=== PATIENT | female | born 1970 | race Two or more races ===

== ENCOUNTER 2023-05-04 09:49 | Emergency (ER) | payer OTHER ==
[2023-05-04 09:58] VITALS: BP 137/77; PULSE 73; RESP 18; TEMP 99.7; BMI 38.2
[2023-05-04 11:12] LABS: BASO % 0.5 % (0-2.0); EOS % 2.1 % (0-4.5); HEMOGLOBIN 11.9 GM/dL (10.7-15.3); LYMPH % 45.8 % (8-40); MCH 28.5 pg (25.7-33.7); MCHC 33.2 g/dl (32.0-36.0); MEAN CELL VOLUME 85.9 fl (80-96); MEAN PLT VOLUME 9.2 fl (7.5-11.1); MONO % 8.1 % (3.8-10.2); NEUT % 43.5 % (42.8-82.8); PLATELET COUNT 264 10^3/uL (134-434); RBC 4.19 M/mm3 (3.60-5.2); RDW 15.8 % (11.6-15.6); WHITE BLOOD COUNT 3.4 K/mm3 (4.0-10.0)
[2023-05-04 11:27] LABS: CALCIUM 8.9 mg/dL (8.5-10.1)
[2023-05-04 11:28] LABS: BLOOD UREA NITROGEN 7.4 mg/dL (7-18)
[2023-05-04 11:31] LABS: CREATININE 0.8 mg/dL (0.55-1.3)
[2023-05-04 11:33] LABS: BILIRUBIN,TOTAL 0.4 mg/dL (0.2-1); TOT PROT 7.9 g/dl (6.4-8.2)
== END 2023-05-04 16:44 | disposition home or self-care (01) ==
LOC: JER 09:49
DX: R00.2 Palpitations (principal); R07.89 Other chest pain; Z20.822 Contact with and (suspected) exposure to COVID-19
CPT/HCPCS: 0241U-QW; 36415; 71046-TC-FY; 80053; 84484; 85025; 93005; 93010; 93971-TC; 99285-25

== ENCOUNTER 2023-05-10 17:07 | Inpatient (IN) | payer OTHER ==
[2023-05-10 17:19] VITALS: BMI 37.9
[2023-05-10] MEDS ORDERED: ACETAMINOPHEN 1000 MG/100 ML BAG IVPB ONE (17:57)
[2023-05-10] MEDS ORDERED: ACETAMINOPHEN INJECTION 100 ML IVPB ONE (18:04)
[2023-05-10 18:29] LABS: BASO % 0.8 % (0-2.0); EOS % 0.4 % (0-4.5); HEMATOCRIT 34.6 % (32.4-45.2); HEMOGLOBIN 11.8 GM/dL (10.7-15.3); LYMPH % 24.4 % (8-40); MCH 28.9 pg (25.7-33.7); MCHC 33.9 g/dl (32.0-36.0); MEAN CELL VOLUME 85.1 fl (80-96); MEAN PLT VOLUME 9.5 fl (7.5-11.1); MONO % 6.8 % (3.8-10.2); NEUT % 67.6 % (42.8-82.8); PLATELET COUNT 243 10^3/uL (134-434); RBC 4.07 M/mm3 (3.60-5.2); RDW 15.3 % (11.6-15.6); WHITE BLOOD COUNT 8.6 K/mm3 (4.0-10.0)
[2023-05-10 18:40] LABS: INR 1.18 (0.83-1.09); PROTHROMBIN TIME (PATIENT) 13.7 SEC (9.7-13.0)
[2023-05-10 18:43] LABS: ACTIVATED PTT 31.9 SECONDS (25.2-36.5)
[2023-05-10 18:44] LABS: POTASSIUM 3.7 mmol/L (3.5-5.1)
[2023-05-10 18:46] LABS: CALCIUM 8.8 mg/dL (8.5-10.1)
[2023-05-10 18:47] LABS: ALBUMIN 3.6 g/dl (3.4-5.0); BLOOD UREA NITROGEN 8.3 mg/dL (7-18)
[2023-05-10 18:49] LABS: CREATININE 0.8 mg/dL (0.55-1.3)
[2023-05-10 18:51] LABS: BILIRUBIN,TOTAL 0.5 mg/dL (0.2-1); TOT PROT 7.6 g/dl (6.4-8.2)
[2023-05-10 19:53] LABS: EPI CELLS 4 /uL (0-25.1); HYALINE CASTS 0 /uL (0-3.1); PH,URINE 6.5 (5.0-8.0); URINE APPEARANCE CLEAR; URINE BACTERIA 33 /uL (0-1359); URINE BILIRUBIN NEGATIVE (NEGATIVE); URINE COLOR YELLOW; URINE GLUCOSE (UA) NEGATIVE (NEGATIVE); URINE KETONE 1+ (NEGATIVE); URINE LEUK ESTERASE NEGATIVE (NEGATIVE); URINE NITRITE NEGATIVE (NEGATIVE); URINE PROTEIN NEGATIVE (NEGATIVE); URINE RBC 84 /uL (0-23.9); URINE WBC 4 /uL (0-25.8)
[2023-05-10] MEDS ORDERED: CIPROFLOXACIN 400 MG/D5W 400 MG/200 ML IVPB IVPB ONE (20:54)
[2023-05-10] MEDS ORDERED: morphine CARPU-JECT 2 MG/1 ML DISP.SYRIN IVPUSH ONE (20:59)
[2023-05-11] MEDS ORDERED: ONDANSETRON 4 MG/2 ML VIAL IVPUSH ONE (01:22)
[2023-05-11] MEDS ORDERED: MONTELUKAST NA 5 MG TAB.CHEW PO PRN (01:23)
[2023-05-11] MEDS ORDERED: KETOROLAC TROMETHAMINE 15 MG/ML VIAL IVPUSH PRN (01:23)
[2023-05-11] MEDS: ALBUTEROL SO4 HFA INHALER IH SCH ×2 (01:45→06:20)
[2023-05-11 07:41] LABS: BASO % 0.5 % (0-2.0); EOS % 0.7 % (0-4.5); HEMATOCRIT 32.3 % (32.4-45.2); LYMPH % 24.4 % (8-40); MCH 29.3 pg (25.7-33.7); MCHC 34.2 g/dl (32.0-36.0); MEAN CELL VOLUME 85.6 fl (80-96); MEAN PLT VOLUME 9.1 fl (7.5-11.1); NEUT % 66.4 % (42.8-82.8); PLATELET COUNT 226 10^3/uL (134-434); RBC 3.77 M/mm3 (3.60-5.2); RDW 15.4 % (11.6-15.6)
[2023-05-11 08:00] LABS: POTASSIUM 3.6 mmol/L (3.5-5.1)
[2023-05-11 08:06] LABS: CALCIUM 8.4 mg/dL (8.5-10.1)
[2023-05-11 08:07] LABS: ALBUMIN 3.4 g/dl (3.4-5.0); BLOOD UREA NITROGEN 6.4 mg/dL (7-18); MAGNESIUM 2.1 mg/dL (1.8-2.4)
[2023-05-11 08:10] LABS: CREATININE 0.7 mg/dL (0.55-1.3); PHOSPHOROUS 3.6 mg/dL (2.5-4.9)
[2023-05-11 08:11] LABS: BILIRUBIN,TOTAL 0.7 mg/dL (0.2-1); TOT PROT 6.9 g/dl (6.4-8.2)
[2023-05-11] MEDS: SODIUM CHLORIDE 1,000 ML IV SCH (08:13)
[2023-05-11] MEDS ORDERED: CEFTRIAXONE 1 GM/50 ML BAG ONE (08:40)
[2023-05-11] MEDS ORDERED: ACETAMINOPHEN INJECTION 100 ML IVPB ONE ×2 (08:44→16:06)
[2023-05-11] MEDS: ACETAMINOPHEN 1000 MG/100 ML BAG IVPB PRN ×2 (08:48→16:15)
[2023-05-11] MEDS: CEFTRIAXONE 1 GM in DEXTROSE 5%-WATER - 50 ML IVPB SCH (08:50)
[2023-05-11] MEDS ORDERED: ALBUTEROL SO4 HFA INHALER IH PRN (09:01)
[2023-05-11] MEDS: ENOXAPARIN NA (PORCINE) 40 MG/0.4 ML DISP.SYRIN SQ SCH (10:22)
[2023-05-11] MEDS ORDERED: METOPROLOL TARTRATE 25 MG TABLET (FP) ONE (10:23)
[2023-05-11] MEDS: METOPROLOL TARTRATE 25 MG TABLET (FP) PO SCH (10:28)
[2023-05-12] MEDS: SODIUM CHLORIDE 1,000 ML IV SCH (02:00)
[2023-05-12] MEDS ORDERED: ACETAMINOPHEN 1000 MG/100 ML BAG IVPB PRN (08:10)
[2023-05-12] MEDS: CEFTRIAXONE 1 GM in DEXTROSE 5%-WATER - 50 ML IVPB SCH (09:35)
[2023-05-12] MEDS: ENOXAPARIN NA (PORCINE) 40 MG/0.4 ML DISP.SYRIN SQ SCH ×2 (09:36→09:49)
[2023-05-12] MEDS: METOPROLOL TARTRATE 25 MG TABLET (FP) PO SCH (09:36)
[2023-05-12] MEDS: FLUTICASONE/SALMETEROL (WIXELA) 100 MCG/50 MCG DISKUS IH SCH ×2 (09:43→22:05)
[2023-05-12 11:51] LABS: HEMATOCRIT 33.7 % (32.4-45.2); MCH 28.6 pg (25.7-33.7); MCHC 32.6 g/dl (32.0-36.0); MEAN CELL VOLUME 87.7 fl (80-96); MEAN PLT VOLUME 10.1 fl (7.5-11.1); PLATELET COUNT 243 10^3/uL (134-434); RBC 3.84 M/mm3 (3.60-5.2); RDW 15.1 % (11.6-15.6); WHITE BLOOD COUNT 5.4 K/mm3 (4.0-10.0)
[2023-05-12 12:03] LABS: POTASSIUM 3.8 mmol/L (3.5-5.1)
[2023-05-12 12:04] LABS: CALCIUM 8.4 mg/dL (8.5-10.1)
[2023-05-12 12:05] LABS: ALBUMIN 3.2 g/dl (3.4-5.0); BLOOD UREA NITROGEN 5.6 mg/dL (7-18)
[2023-05-12 12:08] LABS: CREATININE 0.7 mg/dL (0.55-1.3); PHOSPHOROUS 2.6 mg/dL (2.5-4.9)
[2023-05-12 12:10] LABS: BILIRUBIN,TOTAL 0.5 mg/dL (0.2-1); TOT PROT 7.3 g/dl (6.4-8.2)
[2023-05-13] MEDS: SODIUM CHLORIDE 1,000 ML IV SCH (07:50)
[2023-05-13] MEDS: ENOXAPARIN NA (PORCINE) 40 MG/0.4 ML DISP.SYRIN SQ SCH ×2 (09:48→09:56)
[2023-05-13] MEDS: CEFTRIAXONE 1 GM in DEXTROSE 5%-WATER - 50 ML IVPB SCH (09:49)
[2023-05-13] MEDS: METOPROLOL TARTRATE 25 MG TABLET (FP) PO SCH ×2 (09:49→09:54)
[2023-05-13 10:19] LABS: BASO % 0.5 % (0-2.0); EOS % 2.4 % (0-4.5); HEMATOCRIT 34.2 % (32.4-45.2); HEMOGLOBIN 11.6 GM/dL (10.7-15.3); LYMPH % 30.5 % (8-40); MCH 29.1 pg (25.7-33.7); MCHC 33.9 g/dl (32.0-36.0); MEAN CELL VOLUME 85.9 fl (80-96); MONO % 5.5 % (3.8-10.2); NEUT % 61.1 % (42.8-82.8); PLATELET COUNT 284 10^3/uL (134-434); RBC 3.98 M/mm3 (3.60-5.2); RDW 15.3 % (11.6-15.6); WHITE BLOOD COUNT 3.3 K/mm3 (4.0-10.0)
[2023-05-13 10:38] LABS: POTASSIUM 3.6 mmol/L (3.5-5.1)
[2023-05-13 10:39] LABS: CALCIUM 8.9 mg/dL (8.5-10.1)
[2023-05-13 10:40] LABS: BLOOD UREA NITROGEN 4.7 mg/dL (7-18)
[2023-05-13 10:43] LABS: CREATININE 0.9 mg/dL (0.55-1.3); PHOSPHOROUS 2.2 mg/dL (2.5-4.9)
[2023-05-13] MEDS: FLUTICASONE/SALMETEROL (WIXELA) 100 MCG/50 MCG DISKUS IH SCH (11:15)
[2023-05-13 16:23] VITALS: BP 119/74; PULSE 69; RESP 18; TEMP 98.8
== END 2023-05-13 18:33 | disposition home or self-care (01) | DRG 244 ==
LOC: JER 17:07 → JERBED 22:19 → J5S 05-11 19:06
PROVIDERS: ADMIT Internal Medicine; ATTEND Internal Medicine
DX: K57.32 Diverticulitis of large intestine without perforation or abscess without bleeding (principal); I10 Essential (primary) hypertension; E66.9 Obesity, unspecified; J45.909 Unspecified asthma, uncomplicated; R19.7 Diarrhea, unspecified; R31.9 Hematuria, unspecified; Z68.37 Body mass index [BMI] 37.0-37.9, adult; R10.32 Left lower quadrant pain
CPT/HCPCS: 36415; 74177-TC; 80048; 80053; 81003; 83690; 83735; 84100; 84703; 85025; 85027; 85610; 85730; 86140; 86850; 86900; 86901; 87086; 93005; 93010; 99285-25

== ENCOUNTER 2023-07-28 04:25 | Day surgery (SDC) | payer OTHER ==
[2023-07-25 14:49] VITALS: BMI 37.9
[2023-07-28 07:31] VITALS: RESP 18
[2023-07-28 08:47] VITALS: TEMP 97.1
[2023-07-28 09:17] VITALS: PULSE 62
[2023-07-28 09:19] VITALS: BP 120/62
== END 2023-07-28 09:39 | disposition home or self-care (01) ==
LOC: JASU-ENDO 04:25
PROVIDERS: ATTEND Internal Medicine Gastroenterology
PROC: 0DBN8ZX Excision of Sigmoid Colon, Via Natural or Artificial Opening Endoscopic, Diagnostic (ICD-10-PCS; 2023-07-28)
PROC: 0DBP8ZX Excision of Rectum, Via Natural or Artificial Opening Endoscopic, Diagnostic (ICD-10-PCS; principal; 2023-07-28 08:00)
DX: Z12.11 Encounter for screening for malignant neoplasm of colon (principal); K63.5 Polyp of colon; K62.1 Rectal polyp; K57.30 Diverticulosis of large intestine without perforation or abscess without bleeding; K64.8 Other hemorrhoids; I10 Essential (primary) hypertension
CPT/HCPCS: 88305-TC

== ENCOUNTER 2024-01-02 09:50 | Inpatient (IN) | payer OTHER ==
[2024-01-02] MEDS ORDERED: ACETAMINOPHEN INJECTION 100 ML IVPB ONE (10:29)
[2024-01-02] MEDS ORDERED: ONDANSETRON 4 MG/2 ML VIAL ONE (10:29)
[2024-01-02] MEDS: ACETAMINOPHEN 1000 MG/100 ML BAG IVPB ONE (10:45)
[2024-01-02] MEDS: SODIUM CHLORIDE 0.9% 500 ML INFUS.BAG IV ONE (10:45)
[2024-01-02] MEDS: ONDANSETRON 4 MG/2 ML VIAL IVPB ONE (10:46)
[2024-01-02 10:50] LABS: HEMATOCRIT 38.4 % (32.4-45.2); HEMOGLOBIN 12.8 GM/dL (10.7-15.3); MCH 29.3 pg (25.7-33.7); MCHC 33.4 g/dl (32.0-36.0); MEAN CELL VOLUME 87.8 fl (80-96); MEAN PLT VOLUME 9.2 fl (7.5-11.1); PLATELET COUNT 267 10^3/uL (134-434); RBC 4.37 M/mm3 (3.60-5.2); WHITE BLOOD COUNT 8.5 K/mm3 (4.0-10.0)
[2024-01-02 11:17] LABS: CALCIUM 9.2 mg/dL (8.5-10.1)
[2024-01-02 11:18] LABS: ALBUMIN 3.6 g/dl (3.4-5.0); BLOOD UREA NITROGEN 14.3 mg/dL (7-18)
[2024-01-02 11:21] LABS: CREATININE 0.9 mg/dL (0.55-1.3)
[2024-01-02 11:22] LABS: TOT PROT 7.7 g/dl (6.4-8.2)
[2024-01-02 11:28] LABS: BILIRUBIN,TOTAL 0.7 mg/dL (0.2-1)
[2024-01-02 11:34] LABS: ANISOCYTOSIS 0; HELMET CELLS 0; HOWELL-JOLLY BODIES 0; MACROCYTOSIS 0; OVALOCYTE 0; ROULEAU 0; SICKELED CELLS 0; TARGET CELLS 0; TEAR DROP CELLS 0; TOXIC GRANULATION 0
[2024-01-02] MEDS ORDERED: morphine SULFATE 4 MG/ML VIAL ONE (13:10)
[2024-01-02] MEDS: morphine CARPU-JECT 4 MG/1 ML DISP.SYRIN IVPUSH ONE (13:11)
[2024-01-02] MEDS: DEXTROSE 5%-NORMAL SALINE 1,000 ML IV SCH (14:50)
[2024-01-02] MEDS ORDERED: ONDANSETRON 4 MG/2 ML VIAL IVPUSH PRN (15:53)
[2024-01-02] MEDS ORDERED: ACETAMINOPHEN 1000 MG/100 ML BAG IVPB PRN (15:54)
[2024-01-02] MEDS ORDERED: PIPERACILLIN/TAZOB 3.375 GM 3.375 GM in DEXTROSE 5%-WATER - 50 ML IVPB SCH (16:00)
[2024-01-02] MEDS: DEXTROSE 5%-0.45% SALINE 1,000 ML IV SCH (16:14)
[2024-01-02] MEDS ORDERED: PIPERACILLIN/TAZOB 3.375 GM 3.375 GM/50 ML BAG IVPB ONE (17:28)
[2024-01-02] MEDS: PIPERACILLIN/TAZOB 3.375 GM 3.375 GM in DEXTROSE 5%-WATER - 50 ML IVPB SCH (17:33)
[2024-01-02 19:49] LABS: EPI CELLS 1 /uL (0-25.1); HYALINE CASTS 1 /uL (0-3.1); PH,URINE 5.5 (5.0-8.0); URINE APPEARANCE CLEAR; URINE BACTERIA 5 /uL (0-1359); URINE BILIRUBIN NEGATIVE (NEGATIVE); URINE COLOR YELLOW; URINE GLUCOSE (UA) NEGATIVE (NEGATIVE); URINE KETONE NEGATIVE (NEGATIVE); URINE LEUK ESTERASE NEGATIVE (NEGATIVE); URINE NITRITE NEGATIVE (NEGATIVE); URINE PROTEIN TRACE (NEGATIVE); URINE RBC 49 /uL (0-23.9); URINE UROBILINOGEN 0.2 mg/dL (0.2-1.0); URINE WBC 4 /uL (0-25.8)
[2024-01-02 20:17] VITALS: BMI 35.6
[2024-01-02] MEDS ORDERED: BUDESONIDE/FORMOTEROL FUMARATE 80-4.5 MCG (10.3 GM INHALER) IH SCH (22:00)
[2024-01-02] MEDS: MONTELUKAST NA 10 MG TABLET PO SCH (22:26)
[2024-01-03 07:59] LABS: BASO % 0.6 % (0-2.0); EOS % 0.1 % (0-4.5); HEMATOCRIT 34.3 % (32.4-45.2); HEMOGLOBIN 11.2 GM/dL (10.7-15.3); MCH 29.1 pg (25.7-33.7); MCHC 32.6 g/dl (32.0-36.0); MEAN CELL VOLUME 89.2 fl (80-96); MEAN PLT VOLUME 9.1 fl (7.5-11.1); MONO % 7.7 % (3.8-10.2); NEUT % 69.6 % (42.8-82.8); PLATELET COUNT 230 10^3/uL (134-434); RBC 3.85 M/mm3 (3.60-5.2); RDW 14.9 % (11.6-15.6); WHITE BLOOD COUNT 4.2 K/mm3 (4.0-10.0)
[2024-01-03 08:17] LABS: POTASSIUM 3.2 mmol/L (3.5-5.1)
[2024-01-03 08:28] LABS: ALBUMIN 3.2 g/dl (3.4-5.0); BLOOD UREA NITROGEN 7.4 mg/dL (7-18); CALCIUM 8.2 mg/dL (8.5-10.1)
[2024-01-03 08:31] LABS: BILIRUBIN,TOTAL 0.8 mg/dL (0.2-1); CREATININE 1.1 mg/dL (0.55-1.3)
[2024-01-03 08:32] LABS: TOT PROT 6.8 g/dl (6.4-8.2)
[2024-01-03] MEDS: METOPROLOL TARTRATE 25 MG TABLET (FP) PO SCH (09:42)
[2024-01-03] MEDS: PIPERACILLIN/TAZOB 3.375 GM 3.375 GM in DEXTROSE 5%-WATER - 50 ML IVPB SCH (17:39)
[2024-01-03] MEDS: KCL 10 MEQ IVPB 10 MEQ/100 ML INFUS.BAG IVPB SCH ×2 (17:40→22:14)
[2024-01-03] MEDS: POTASSIUM CHLORIDE ORAL LIQUID 20 MEQ/15 ML PO ONE ×2 (17:51→21:20)
[2024-01-04 08:41] LABS: BASO % 0.3 % (0-2.0); EOS % 4.2 % (0-4.5); HEMOGLOBIN 11.2 GM/dL (10.7-15.3); LYMPH % 37.7 % (8-40); MCH 29.7 pg (25.7-33.7); MCHC 34.1 g/dl (32.0-36.0); MEAN CELL VOLUME 87.3 fl (80-96); MEAN PLT VOLUME 9.1 fl (7.5-11.1); MONO % 11.6 % (3.8-10.2); NEUT % 46.2 % (42.8-82.8); PLATELET COUNT 220 10^3/uL (134-434); RBC 3.78 M/mm3 (3.60-5.2); RDW 14.6 % (11.6-15.6); WHITE BLOOD COUNT 4.2 K/mm3 (4.0-10.0)
[2024-01-04 08:55] LABS: POTASSIUM 3.6 mmol/L (3.5-5.1)
[2024-01-04 09:17] LABS: ALBUMIN 3.2 g/dl (3.4-5.0); CALCIUM 8.5 mg/dL (8.5-10.1)
[2024-01-04 09:19] LABS: BLOOD UREA NITROGEN 3.4 mg/dL (7-18)
[2024-01-04 09:21] LABS: CREATININE 0.7 mg/dL (0.55-1.3)
[2024-01-04 09:23] LABS: BILIRUBIN,TOTAL 0.3 mg/dL (0.2-1); TOT PROT 6.6 g/dl (6.4-8.2)
[2024-01-04] MEDS: PSYLLIUM 5.85 GM PACKET PO SCH (09:52)
[2024-01-04] MEDS: LACTOBACILLUS ACIDOPHILUS 1 TABLET PO SCH (09:53)
[2024-01-05 07:54] LABS: BASO % 0.2 % (0-2.0); EOS % 7.1 % (0-4.5); HEMATOCRIT 32.6 % (32.4-45.2); HEMOGLOBIN 11.1 GM/dL (10.7-15.3); LYMPH % 48.7 % (8-40); MCH 29.5 pg (25.7-33.7); MCHC 33.9 g/dl (32.0-36.0); MEAN PLT VOLUME 8.9 fl (7.5-11.1); MONO % 11.2 % (3.8-10.2); NEUT % 32.8 % (42.8-82.8); PLATELET COUNT 235 10^3/uL (134-434); RBC 3.75 M/mm3 (3.60-5.2); RDW 14.7 % (11.6-15.6); WHITE BLOOD COUNT 3.9 K/mm3 (4.0-10.0)
[2024-01-05 08:11] LABS: POTASSIUM 3.8 mmol/L (3.5-5.1)
[2024-01-05 08:16] LABS: BLOOD UREA NITROGEN 7.5 mg/dL (7-18); CALCIUM 8.3 mg/dL (8.5-10.1)
[2024-01-05 08:20] LABS: BILIRUBIN,TOTAL 0.3 mg/dL (0.2-1); CREATININE 0.9 mg/dL (0.55-1.3); TOT PROT 6.7 g/dl (6.4-8.2)
[2024-01-05] MEDS: [UNRECOGNIZED DRUG - OTHER] IH SCH (21:53)
[2024-01-05] MEDS: METOPROLOL TARTRATE 25 MG TABLET (FP) PO SCH (21:53)
[2024-01-05] MEDS: ADVAIR IH SCH (21:53)
[2024-01-06 12:34] VITALS: BP 123/65; PULSE 64; RESP 17; TEMP 98.1
== END 2024-01-06 18:09 | disposition home or self-care (01) | DRG 244 ==
LOC: JER 09:50 → JERBED 15:07 → J7W 19:48
PROVIDERS: ADMIT Internal Medicine; ATTEND Internal Medicine
DX: K57.32 Diverticulitis of large intestine without perforation or abscess without bleeding (principal); I10 Essential (primary) hypertension; R10.32 Left lower quadrant pain; K52.9 Noninfective gastroenteritis and colitis, unspecified; J45.909 Unspecified asthma, uncomplicated; K63.5 Polyp of colon
CPT/HCPCS: 0241U-QW; 36415; 74177-TC; 80053; 81003; 83605; 83690; 85025; 86140; 87045; 87046; 87324; 87449; 93005; 93010; 99285-25; J0131; Q9967

== ENCOUNTER 2024-01-17 03:53 | Inpatient (IN) | payer OTHER ==
[2024-01-17] MEDS ORDERED: ceFAZolin SODIUM 1 GM VIAL ONE (06:19)
[2024-01-17] MEDS ORDERED: DEXAMETHASONE SOD PHOSPHATE 4 MG/1 ML VIAL ONE (07:27)
[2024-01-17] MEDS ORDERED: LIDOCAINE HCL/PF 2% SDV 5ML VIAL ONE (07:27)
[2024-01-17] MEDS ORDERED: ONDANSETRON 4 MG/2 ML VIAL ONE (07:27)
[2024-01-17] MEDS ORDERED: ROCURONIUM BROMIDE 50 MG/5 ML SYRINGE ONE (07:28)
[2024-01-17] MEDS ORDERED: FENTANYL CITRATE/PF 50 MCG/ML VIAL ONE ×2 (07:28→10:58)
[2024-01-17] MEDS ORDERED: PROPOFOL 100 ML ONE (07:28)
[2024-01-17] MEDS ORDERED: SUCCINYLCHOLINE CHLORIDE 200 MG/10 ML SYRINGE ONE (07:30)
[2024-01-17] MEDS ORDERED: HEPARIN NA (PORCINE) 5,000 UNITS/ML 1ML VIAL ONE (07:34)
[2024-01-17] MEDS ORDERED: BUPIVACAINE HCL/PF 0.25% (2.5MG/ML) 10 ML VIAL ONE (07:34)
[2024-01-17] MEDS ORDERED: INDOCYANINE GREEN 25 MG/10 ML VIAL IVPUSH ONE (07:34)
[2024-01-17] MEDS ORDERED: cefOXitin SODIUM 2 GM VIAL (RESTRICTED TO ID) IVPB ONE ×2 (07:34→13:18)
[2024-01-17] MEDS ORDERED: MIDAZOLAM HCL 2 MG/2 ML SINGLE DOSE VIAL ONE (07:36)
[2024-01-17] MEDS: cefOXitin SODIUM 2 GM VIAL (RESTRICTED TO ID) IVPB ONE ×2 (08:36→13:26)
[2024-01-17] MEDS: BUPIVACAINE HCL/PF 0.25% (2.5MG/ML) 10 ML VIAL IJ ONE ×2 (09:00→09:10)
[2024-01-17 11:28] LABS: ARTERIAL BLD GAS O2 SATURATION 99.7 % (95-98); ARTERIAL BLOOD GAS BASE EXCESS -7.3 mmol/L (-2-2); ARTERIAL BLOOD GAS PO2 345.3 mmHg (80-100); ARTERIAL BLOOD GAS pH 7.254 (7.350-7.450)
[2024-01-17 11:29] LABS: ALLENS TEST POSITIVE
[2024-01-17 11:32] LABS: BASO % 0.3 % (0-2.0); EOS % 0.4 % (0-4.5); HEMATOCRIT 38.1 % (32.4-45.2); HEMOGLOBIN 12.4 GM/dL (10.7-15.3); LYMPH % 13.1 % (8-40); MCHC 32.6 g/dl (32.0-36.0); MEAN CELL VOLUME 88.9 fl (80-96); MEAN PLT VOLUME 9.4 fl (7.5-11.1); MONO % 1.6 % (3.8-10.2); NEUT % 84.6 % (42.8-82.8); PLATELET COUNT 194 10^3/uL (134-434); RBC 4.28 M/mm3 (3.60-5.2); RDW 14.2 % (11.6-15.6); WHITE BLOOD COUNT 12.6 K/mm3 (4.0-10.0)
[2024-01-17] MEDS ORDERED: HYDROmorphone HCl 2 MG/ML VIAL ONE (11:43)
[2024-01-17 11:51] LABS: CHLORIDE 113 mmol/L (98-107); POTASSIUM 5.8 mmol/L (3.5-5.1); SODIUM 141 mmol/L (136-145)
[2024-01-17 11:55] LABS: ANION GAP 4 mmol/L (4-13); BLOOD UREA NITROGEN 9.9 mg/dL (7-18); CO2 24 mmol/L (21-32); GLUCOSE,RANDOM 250 mg/dL (74-106)
[2024-01-17 11:58] LABS: CREATININE 0.9 mg/dL (0.55-1.3); SGOT/AST 15 U/L (15-37); SGPT/ALT 21 U/L (13-61)
[2024-01-17 11:59] LABS: TOT PROT 4.8 g/dl (6.4-8.2)
[2024-01-17 12:00] LABS: BILIRUBIN,TOTAL 0.3 mg/dL (0.2-1)
[2024-01-17 12:01] LABS: ALK PHOS 44 U/L (45-117)
[2024-01-17 12:03] LABS: ALBUMIN 2.3 g/dl (3.4-5.0); CALCIUM 6.7 mg/dL (8.5-10.1)
[2024-01-17 12:06] LABS: ARTERIAL BLD GAS O2 SATURATION 99.8 % (95-98); ARTERIAL BLOOD GAS BASE EXCESS -2.9 mmol/L (-2-2); ARTERIAL BLOOD GAS PO2 354.2 mmHg (80-100); ARTERIAL BLOOD GAS pH 7.384 (7.350-7.450)
[2024-01-17 12:12] LABS: INR 1.09 (0.83-1.09); PROTHROMBIN TIME (PATIENT) 12.3 SEC (9.7-13.0)
[2024-01-17 12:15] LABS: ACTIVATED PTT 21.4 SECONDS (25.2-36.5)
[2024-01-17] MEDS ORDERED: CALCIUM CHLORIDE 1 GM/10 ML *DISP.SYRIN ONE (12:29)
[2024-01-17] MEDS ORDERED: SUGAMMADEX SODIUM 200 MG/2 ML VIAL ONE ×2 (13:52→14:39)
[2024-01-17] MEDS ORDERED: PROPOFOL 20 ML ONE (14:28)
[2024-01-17] MEDS: LACTATED RINGERS SOLUTION 1,000 ML IV SCH (14:59)
[2024-01-17] MEDS ORDERED: ONDANSETRON 4 MG/2 ML VIAL IVPUSH PRN (15:10)
[2024-01-17 15:51] LABS: ARTERIAL BLD GAS O2 SATURATION 99.3 % (95-98); ARTERIAL BLOOD GAS BASE EXCESS -3.4 mmol/L (-2-2); ARTERIAL BLOOD GAS PO2 216.6 mmHg (80-100); ARTERIAL BLOOD GAS pH 7.306 (7.350-7.450)
[2024-01-17 15:54] LABS: HEMATOCRIT 39.7 % (32.4-45.2); HEMOGLOBIN 13.3 GM/dL (10.7-15.3); MCH 29.2 pg (25.7-33.7); MCHC 33.5 g/dl (32.0-36.0); MEAN CELL VOLUME 87.1 fl (80-96); MEAN PLT VOLUME 9.2 fl (7.5-11.1); PLATELET COUNT 241 10^3/uL (134-434); RBC 4.56 M/mm3 (3.60-5.2); RDW 14.3 % (11.6-15.6); WHITE BLOOD COUNT 13.2 K/mm3 (4.0-10.0)
[2024-01-17] MEDS: ACETAMINOPHEN 1000 MG/100 ML BAG IVPB STA (15:59)
[2024-01-17] MEDS ORDERED: ACETAMINOPHEN INJECTION 100 ML IVPB ONE (16:00)
[2024-01-17] MEDS: FAMOTIDINE 20 MG/50 ML IVPB 20 MG/50 ML MG IVPB SCH (16:00)
[2024-01-17] MEDS ORDERED: FAMOTIDINE 20 MG/50 ML IVPB 20 MG/50 ML MG IVPB ONE (16:01)
[2024-01-17 16:09] LABS: INR 1.03 (0.83-1.09); PROTHROMBIN TIME (PATIENT) 11.6 SEC (9.7-13.0)
[2024-01-17 16:12] LABS: ACTIVATED PTT 25.7 SECONDS (25.2-36.5)
[2024-01-17] MEDS: ELECTROLYTE-148 SOLN 1,000 ML IV SCH (16:29)
[2024-01-17] MEDS: HYDROmorphone *PCA* 10MG/50ML DISP.SYRIN PCA SCH ×2 (16:30→17:50)
[2024-01-17 16:45] LABS: POTASSIUM 3.8 mmol/L (3.5-5.1)
[2024-01-17 16:47] LABS: BLOOD UREA NITROGEN 11.3 mg/dL (7-18)
[2024-01-17 16:48] LABS: MAGNESIUM 1.7 mg/dL (1.8-2.4)
[2024-01-17 16:51] LABS: CREATININE 1.3 mg/dL (0.55-1.3); PHOSPHOROUS 4.4 mg/dL (2.5-4.9)
[2024-01-17 16:52] LABS: BILIRUBIN,TOTAL 1.1 mg/dL (0.2-1); TOT PROT 6.4 g/dl (6.4-8.2)
[2024-01-17 16:54] LABS: ALBUMIN 3.4 g/dl (3.4-5.0); CALCIUM 9.8 mg/dL (8.5-10.1)
[2024-01-17] MEDS: CALCIUM GLUCONATE 10% - 1,000 MG/10 ML VIAL IVPB ONE (17:29)
[2024-01-17] MEDS: CEFOXITIN SODIUM 2 GM in DEXTROSE 5%-WATER - 100 ML IVPB ONE (17:51)
[2024-01-17] MEDS: LIDOCAINE 5% TOPICAL PATCH TP SCH (18:02)
[2024-01-17] MEDS: CEFOXITIN SODIUM 2 GM in DEXTROSE 5%-WATER 100 ML IVPB SCH (19:04)
[2024-01-17] MEDS: LACTATED RINGERS SOLUTION 1,000 ML/1,000 ML INFUS.BAG IV SCH (19:57)
[2024-01-17] MEDS: MAGNESIUM SULF 50% (8.12 MEQ/2 ML-1 GM VIAL) IVPB ONE (20:24)
[2024-01-17 21:19] LABS: HEMATOCRIT 39.9 % (32.4-45.2); HEMOGLOBIN 13.7 GM/dL (10.7-15.3); MCH 29.4 pg (25.7-33.7); MCHC 34.3 g/dl (32.0-36.0); MEAN CELL VOLUME 85.7 fl (80-96); MEAN PLT VOLUME 8.8 fl (7.5-11.1); PLATELET COUNT 232 10^3/uL (134-434); RBC 4.65 M/mm3 (3.60-5.2); RDW 14.4 % (11.6-15.6); WHITE BLOOD COUNT 18.1 K/mm3 (4.0-10.0)
[2024-01-17] MEDS: MUPIROCIN 2% TOPICAL OINTMENT FOR DECOLONIZATION NS SCH (21:26)
[2024-01-17] MEDS: TRANEXAMIC ACID 1000 MG/10 ML VIAL IVPUSH SCH (21:26)
[2024-01-17] MEDS: LIDOCAINE PATCH REMOVAL MC SCH (21:27)
[2024-01-17] MEDS: CHLORHEXIDINE GLUCONATE 4% CLEANSER FOR DECOLONIZATION TP SCH (21:27)
[2024-01-17 21:28] LABS: INR 1.04 (0.83-1.09); PROTHROMBIN TIME (PATIENT) 11.7 SEC (9.7-13.0)
[2024-01-17] MEDS: ACETAMINOPHEN 1000 MG/100 ML BAG IVPB PRN (21:28)
[2024-01-17 21:31] LABS: ACTIVATED PTT 28.4 SECONDS (25.2-36.5)
[2024-01-17] MEDS ORDERED: MUPIROCIN 2% TOPICAL OINTMENT FOR DECOLONIZATION NS SCH (22:00)
[2024-01-17] MEDS ORDERED: CHLORHEXIDINE GLUCONATE 4% CLEANSER FOR DECOLONIZATION TP SCH (22:00)
[2024-01-17 22:11] LABS: PLATELET ESTIMATE ADEQUATE
[2024-01-17] MEDS ORDERED: METOPROLOL TARTRATE 5 MG/5 ML VIAL ONE (23:23)
[2024-01-17] MEDS: METOPROLOL TARTRATE 5 MG/5 ML VIAL IVPUSH ONE (23:40)
[2024-01-18] MEDS: FENTANYL CITRATE/PF 50 MCG/ML VIAL IVPUSH PRN (01:45)
[2024-01-18 03:27] LABS: HEMATOCRIT 38.5 % (32.4-45.2); HEMOGLOBIN 13.2 GM/dL (10.7-15.3); MCH 29.2 pg (25.7-33.7); MCHC 34.3 g/dl (32.0-36.0); MEAN CELL VOLUME 85.2 fl (80-96); PLATELET COUNT 213 10^3/uL (134-434); RBC 4.52 M/mm3 (3.60-5.2); RDW 14.7 % (11.6-15.6); WHITE BLOOD COUNT 18.8 K/mm3 (4.0-10.0)
[2024-01-18 03:52] LABS: INR 1.13 (0.83-1.09); PROTHROMBIN TIME (PATIENT) 12.7 SEC (9.7-13.0)
[2024-01-18 03:54] LABS: ACTIVATED PTT 25.9 SECONDS (25.2-36.5); ANISOCYTOSIS 0; MACROCYTOSIS 0; OVALOCYTE 1+
[2024-01-18 07:22] LABS: BLOOD UREA NITROGEN 13.7 mg/dL (7-18); CALCIUM 8.6 mg/dL (8.5-10.1)
[2024-01-18 07:25] LABS: PHOSPHOROUS 3.7 mg/dL (2.5-4.9)
[2024-01-18 07:26] LABS: CREATININE 1.2 mg/dL (0.55-1.3)
[2024-01-18 07:27] LABS: BILIRUBIN,TOTAL 0.9 mg/dL (0.2-1)
[2024-01-18 07:30] LABS: TOT PROT 6.1 g/dl (6.4-8.2)
[2024-01-18] MEDS: HYDROmorphone *PCA* 10MG/50ML DISP.SYRIN PCA SCH (09:15)
[2024-01-18 10:36] LABS: BASO % 0.2 % (0-2.0); HEMATOCRIT 38.6 % (32.4-45.2); HEMOGLOBIN 12.7 GM/dL (10.7-15.3); MCH 28.8 pg (25.7-33.7); MEAN CELL VOLUME 87.1 fl (80-96); MEAN PLT VOLUME 9.5 fl (7.5-11.1); MONO % 5.2 % (3.8-10.2); NEUT % 88.6 % (42.8-82.8); PLATELET COUNT 204 10^3/uL (134-434); RBC 4.43 M/mm3 (3.60-5.2); RDW 14.5 % (11.6-15.6); WHITE BLOOD COUNT 18.6 K/mm3 (4.0-10.0)
[2024-01-18 10:44] LABS: INR 1.23 (0.83-1.09); PROTHROMBIN TIME (PATIENT) 13.8 SEC (9.7-13.0)
[2024-01-18 10:47] LABS: ACTIVATED PTT 28.5 SECONDS (25.2-36.5)
[2024-01-18 17:39] LABS: BASO % 0.2 % (0-2.0); HEMATOCRIT 36.5 % (32.4-45.2); HEMOGLOBIN 12.5 GM/dL (10.7-15.3); LYMPH % 9.1 % (8-40); MCH 29.3 pg (25.7-33.7); MCHC 34.1 g/dl (32.0-36.0); MEAN CELL VOLUME 85.9 fl (80-96); MEAN PLT VOLUME 9.7 fl (7.5-11.1); MONO % 6.2 % (3.8-10.2); NEUT % 84.5 % (42.8-82.8); PLATELET COUNT 190 10^3/uL (134-434); RBC 4.25 M/mm3 (3.60-5.2); RDW 14.7 % (11.6-15.6); WHITE BLOOD COUNT 17.5 K/mm3 (4.0-10.0)
[2024-01-18 17:47] LABS: INR 1.22 (0.83-1.09); PROTHROMBIN TIME (PATIENT) 13.7 SEC (9.7-13.0)
[2024-01-18 21:43] LABS: BASO % 0.2 % (0-2.0); EOS % 0.1 % (0-4.5); HEMATOCRIT 34.7 % (32.4-45.2); HEMOGLOBIN 11.7 GM/dL (10.7-15.3); LYMPH % 10.8 % (8-40); MCH 29.3 pg (25.7-33.7); MCHC 33.9 g/dl (32.0-36.0); MEAN CELL VOLUME 86.5 fl (80-96); MEAN PLT VOLUME 9.1 fl (7.5-11.1); MONO % 6.5 % (3.8-10.2); NEUT % 82.4 % (42.8-82.8); PLATELET COUNT 187 10^3/uL (134-434); RBC 4.01 M/mm3 (3.60-5.2); RDW 14.6 % (11.6-15.6)
[2024-01-18 22:02] LABS: INR 1.16 (0.83-1.09); PROTHROMBIN TIME (PATIENT) 13.1 SEC (9.7-13.0)
[2024-01-18 22:04] LABS: ACTIVATED PTT 29.2 SECONDS (25.2-36.5)
[2024-01-19 07:11] LABS: HEMATOCRIT 31.1 % (32.4-45.2); HEMOGLOBIN 10.5 GM/dL (10.7-15.3); MCH 29.2 pg (25.7-33.7); MCHC 33.7 g/dl (32.0-36.0); MEAN CELL VOLUME 86.7 fl (80-96); MEAN PLT VOLUME 9.3 fl (7.5-11.1); PLATELET COUNT 181 10^3/uL (134-434); RBC 3.59 M/mm3 (3.60-5.2); RDW 14.2 % (11.6-15.6); WHITE BLOOD COUNT 14.7 K/mm3 (4.0-10.0)
[2024-01-19 07:33] LABS: POTASSIUM 3.8 mmol/L (3.5-5.1)
[2024-01-19 07:37] LABS: ALBUMIN 2.4 g/dl (3.4-5.0); BLOOD UREA NITROGEN 10.9 mg/dL (7-18); CALCIUM 8.3 mg/dL (8.5-10.1); MAGNESIUM 1.9 mg/dL (1.8-2.4)
[2024-01-19 07:41] LABS: BILIRUBIN,TOTAL 0.6 mg/dL (0.2-1); CREATININE 0.9 mg/dL (0.55-1.3); PHOSPHOROUS 2.1 mg/dL (2.5-4.9); TOT PROT 5.3 g/dl (6.4-8.2)
[2024-01-19 12:26] LABS: BASO % 0.1 % (0-2.0); EOS % 0.1 % (0-4.5); HEMATOCRIT 34.2 % (32.4-45.2); HEMOGLOBIN 11.6 GM/dL (10.7-15.3); LYMPH % 6.4 % (8-40); MCH 29.4 pg (25.7-33.7); MCHC 33.8 g/dl (32.0-36.0); MEAN CELL VOLUME 86.9 fl (80-96); MEAN PLT VOLUME 9.2 fl (7.5-11.1); MONO % 5.8 % (3.8-10.2); NEUT % 87.6 % (42.8-82.8); PLATELET COUNT 189 10^3/uL (134-434); RBC 3.93 M/mm3 (3.60-5.2); WHITE BLOOD COUNT 16.5 K/mm3 (4.0-10.0)
[2024-01-19] MEDS ORDERED: NOREPINEPHRINE BITARTRATE 4,000 MCG in DEXTROSE 5%-WATER - 496 ML IV SCH (12:30)
[2024-01-20 07:13] LABS: BASO % 0.5 % (0-2.0); EOS % 0.4 % (0-4.5); HEMATOCRIT 31.6 % (32.4-45.2); HEMOGLOBIN 10.5 GM/dL (10.7-15.3); LYMPH % 14.3 % (8-40); MCH 29.4 pg (25.7-33.7); MCHC 33.3 g/dl (32.0-36.0); MEAN CELL VOLUME 88.2 fl (80-96); MONO % 5.3 % (3.8-10.2); NEUT % 79.5 % (42.8-82.8); PLATELET COUNT 193 10^3/uL (134-434); RBC 3.58 M/mm3 (3.60-5.2); RDW 14.7 % (11.6-15.6); WHITE BLOOD COUNT 13.6 K/mm3 (4.0-10.0)
[2024-01-20 07:41] LABS: CALCIUM 8.6 mg/dL (8.5-10.1)
[2024-01-20 07:42] LABS: ALBUMIN 2.6 g/dl (3.4-5.0); MAGNESIUM 2.1 mg/dL (1.8-2.4)
[2024-01-20 07:44] LABS: BLOOD UREA NITROGEN 9.3 mg/dL (7-18)
[2024-01-20 07:45] LABS: CREATININE 0.9 mg/dL (0.55-1.3)
[2024-01-20 07:46] LABS: BILIRUBIN,TOTAL 0.6 mg/dL (0.2-1)
[2024-01-20 07:47] LABS: TOT PROT 5.8 g/dl (6.4-8.2)
[2024-01-20] MEDS: AMINO ACIDS 4.25%/D5W 1,000 ML IV SCH (17:34)
[2024-01-21] MEDS: LACTATED RINGERS SOLUTION 1,000 ML/1,000 ML INFUS.BAG IV SCH (14:00)
[2024-01-21] MEDS: oxyCODONE HCL 5 MG TABLET PO SCH (14:45)
[2024-01-21] MEDS: ACETAMINOPHEN 325 MG TABLET (FP) PO SCH (14:50)
[2024-01-21 16:14] LABS: BASO % 0.4 % (0-2.0); EOS % 1.4 % (0-4.5); HEMATOCRIT 33.7 % (32.4-45.2); HEMOGLOBIN 11.4 GM/dL (10.7-15.3); LYMPH % 15.8 % (8-40); MCH 29.4 pg (25.7-33.7); MCHC 33.7 g/dl (32.0-36.0); MEAN CELL VOLUME 87.2 fl (80-96); MEAN PLT VOLUME 8.5 fl (7.5-11.1); MONO % 7.8 % (3.8-10.2); NEUT % 74.6 % (42.8-82.8); PLATELET COUNT 232 10^3/uL (134-434); RBC 3.87 M/mm3 (3.60-5.2); RDW 14.2 % (11.6-15.6); WHITE BLOOD COUNT 9.2 K/mm3 (4.0-10.0)
[2024-01-21 16:33] LABS: POTASSIUM 3.3 mmol/L (3.5-5.1); POTASSIUM 3.4 mmol/L (3.5-5.1)
[2024-01-21 16:36] LABS: CALCIUM 8.3 mg/dL (8.5-10.1)
[2024-01-21 16:37] LABS: ALBUMIN 2.7 g/dl (3.4-5.0); BLOOD UREA NITROGEN 9.9 mg/dL (7-18)
[2024-01-21 16:38] LABS: ALBUMIN 2.8 g/dl (3.4-5.0); BLOOD UREA NITROGEN 10.3 mg/dL (7-18); CALCIUM 8.3 mg/dL (8.5-10.1)
[2024-01-21 16:40] LABS: CREATININE 1.1 mg/dL (0.55-1.3)
[2024-01-21 16:41] LABS: CREATININE 1.1 mg/dL (0.55-1.3); TOT PROT 6.4 g/dl (6.4-8.2)
[2024-01-21 16:42] LABS: BILIRUBIN,TOTAL 0.6 mg/dL (0.2-1); BILIRUBIN,TOTAL 0.7 mg/dL (0.2-1)
[2024-01-21 16:43] LABS: TOT PROT 6.4 g/dl (6.4-8.2)
[2024-01-21] MEDS: CEFOXITIN SODIUM 2 GM in DEXTROSE 5%-WATER 100 ML IVPB SCH (17:25)
[2024-01-21 18:50] VITALS: RESP 18
[2024-01-21] MEDS: LIDOCAINE PATCH REMOVAL MC SCH (21:25)
[2024-01-21] MEDS ORDERED: MUPIROCIN 2% TOPICAL OINTMENT FOR DECOLONIZATION NS SCH (22:00)
[2024-01-21] MEDS ORDERED: CHLORHEXIDINE GLUCONATE 4% CLEANSER FOR DECOLONIZATION TP SCH (22:00)
[2024-01-22] MEDS: morphine SULFATE 4 MG/ML VIAL IVPUSH PRN (05:06)
[2024-01-22] MEDS: FAMOTIDINE 20 MG/50 ML IVPB 20 MG/50 ML MG IVPB SCH (08:09)
[2024-01-22 08:23] LABS: POTASSIUM 3.2 mmol/L (3.5-5.1)
[2024-01-22 08:27] LABS: CALCIUM 8.3 mg/dL (8.5-10.1)
[2024-01-22 08:28] LABS: ALBUMIN 2.7 g/dl (3.4-5.0); BLOOD UREA NITROGEN 14.6 mg/dL (7-18)
[2024-01-22 08:31] LABS: CREATININE 0.7 mg/dL (0.55-1.3)
[2024-01-22 08:32] LABS: BILIRUBIN,TOTAL 0.7 mg/dL (0.2-1); TOT PROT 6.2 g/dl (6.4-8.2)
[2024-01-22 08:39] LABS: BASO % 0.2 % (0-2.0); EOS % 3.7 % (0-4.5); HEMATOCRIT 29.9 % (32.4-45.2); HEMOGLOBIN 10.2 GM/dL (10.7-15.3); LYMPH % 22.4 % (8-40); MCH 29.7 pg (25.7-33.7); MEAN CELL VOLUME 87.4 fl (80-96); MEAN PLT VOLUME 8.6 fl (7.5-11.1); MONO % 9.8 % (3.8-10.2); NEUT % 63.9 % (42.8-82.8); PLATELET COUNT 226 10^3/uL (134-434); RBC 3.43 M/mm3 (3.60-5.2); RDW 14.1 % (11.6-15.6); WHITE BLOOD COUNT 7.5 K/mm3 (4.0-10.0)
[2024-01-22] MEDS: LIDOCAINE 5% TOPICAL PATCH TP SCH (09:49)
[2024-01-22] MEDS: KCL 10 MEQ IVPB 10 MEQ/100 ML INFUS.BAG IVPB SCH (17:47)
[2024-01-22] MEDS: POTASSIUM CHLORIDE ORAL LIQUID 20 MEQ/15 ML PO ONE (18:29)
[2024-01-23 09:36] LABS: POTASSIUM 3.8 mmol/L (3.5-5.1)
[2024-01-23 09:43] LABS: BLOOD UREA NITROGEN 14.9 mg/dL (7-18); CALCIUM 8.7 mg/dL (8.5-10.1)
[2024-01-23 09:44] LABS: ALBUMIN 2.8 g/dl (3.4-5.0); CREATININE 0.7 mg/dL (0.55-1.3)
[2024-01-23 09:45] LABS: TOT PROT 6.4 g/dl (6.4-8.2)
[2024-01-23 09:49] LABS: BILIRUBIN,TOTAL 0.6 mg/dL (0.2-1)
[2024-01-24 15:06] VITALS: BP 136/87; PULSE 80; TEMP 98.2
[2024-01-24 15:13] VITALS: BMI 35.7
== END 2024-01-24 17:39 | disposition home or self-care (01) | DRG 221 ==
LOC: J2C 03:53 → EDSTATUS 13:00 → JICU 17:12 → J8W 01-21 14:26
PROVIDERS: ADMIT Internal Medicine; ATTEND Internal Medicine
PROC: 0T9B80Z Drainage of Bladder with Drainage Device, Via Natural or Artificial Opening Endoscopic (ICD-10-PCS; 2024-01-17)
PROC: 8E0W0CZ Robotic Assisted Procedure of Trunk Region, Open Approach (ICD-10-PCS; 2024-01-17)
PROC: 30233K1 Transfusion of Nonautologous Frozen Plasma into Peripheral Vein, Percutaneous Approach (ICD-10-PCS; 2024-01-17)
PROC: 30233N1 Transfusion of Nonautologous Red Blood Cells into Peripheral Vein, Percutaneous Approach (ICD-10-PCS; 2024-01-17)
PROC: 30233R1 Transfusion of Nonautologous Platelets into Peripheral Vein, Percutaneous Approach (ICD-10-PCS; 2024-01-17)
PROC: 0TP90DZ Removal of Intraluminal Device from Ureter, Open Approach (ICD-10-PCS; 2024-01-17)
PROC: 0TP90DZ Removal of Intraluminal Device from Ureter, Open Approach (ICD-10-PCS; 2024-01-17)
PROC: 0DBN0ZZ Excision of Sigmoid Colon, Open Approach (ICD-10-PCS; principal; 2024-01-17 08:00)
PROC: 0T9870Z Drainage of Bilateral Ureters with Drainage Device, Via Natural or Artificial Opening (ICD-10-PCS; 2024-01-17 08:00)
DX: K57.32 Diverticulitis of large intestine without perforation or abscess without bleeding (principal); I97.42 Intraoperative hemorrhage and hematoma of a circulatory system organ or structure complicating other procedure; S35 Injury of blood vessels at abdomen, lower back and pelvis level; D62 Acute posthemorrhagic anemia; I10 Essential (primary) hypertension; J45.909 Unspecified asthma, uncomplicated; Y83.8 Other surgical procedures as the cause of abnormal reaction of the patient, or of later complication, without mention of misadventure at the time of the procedure; Z53.31 Laparoscopic surgical procedure converted to open procedure
CPT/HCPCS: 36415; 36430; 36600; 74018-TC-FY; 80053; 82803; 83735; 84100; 85025; 85027; 85384; 85610; 85730; 86140; 86922; 87635; 88307-TC; 94010; 94760; 97116-GP; 97161-GP; J0131; J1644; P9012; P9017; P9037; P9038; P9058

== ENCOUNTER 2024-01-26 23:20 | Observation (INO) | payer OTHER ==
[2024-01-26 23:50] VITALS: BMI 36.1
[2024-01-27] MEDS ORDERED: ACETAMINOPHEN INJECTION 100 ML IVPB ONE ×2 (00:09→08:28)
[2024-01-27] MEDS: ACETAMINOPHEN 1000 MG/100 ML BAG IVPB ONE (00:40)
[2024-01-27] MEDS ORDERED: morphine SULFATE 4 MG/ML VIAL ONE (01:00)
[2024-01-27] MEDS: LACTATED RINGERS SOLUTION 1000 ML INFUS.BAG IV ONE (01:24)
[2024-01-27] MEDS: morphine CARPU-JECT 2 MG/1 ML DISP.SYRIN IVPUSH ONE (01:24)
[2024-01-27 02:00] LABS: BASO % 0.5 % (0-2.0); EOS % 2.3 % (0-4.5); HEMATOCRIT 31.3 % (32.4-45.2); HEMOGLOBIN 10.6 GM/dL (10.7-15.3); MCH 29.8 pg (25.7-33.7); MCHC 33.9 g/dl (32.0-36.0); MEAN PLT VOLUME 8.4 fl (7.5-11.1); MONO % 6.1 % (3.8-10.2); NEUT % 67.1 % (42.8-82.8); PLATELET COUNT 324 10^3/uL (134-434); RBC 3.56 M/mm3 (3.60-5.2); RDW 14.5 % (11.6-15.6); WHITE BLOOD COUNT 8.7 K/mm3 (4.0-10.0)
[2024-01-27 02:09] LABS: INR 1.11 (0.83-1.09); PROTHROMBIN TIME (PATIENT) 12.5 SEC (9.7-13.0)
[2024-01-27 02:09] LABS: ALBUMIN 3.5 g/dl (3.4-5.0); BILIRUBIN,TOTAL 0.5 mg/dL (0.2-1); BLOOD UREA NITROGEN 9.1 mg/dL (7-18); CALCIUM 9.1 mg/dL (8.5-10.1); CREATININE 0.8 mg/dL (0.55-1.3); MAGNESIUM 1.9 mg/dL (1.8-2.4); POTASSIUM 3.9 mmol/L (3.5-5.1); TOT PROT 7.7 g/dl (6.4-8.2)
[2024-01-27 02:11] LABS: ACTIVATED PTT 31.7 SECONDS (25.2-36.5)
[2024-01-27] MEDS ORDERED: DOCUSATE SODIUM 100 MG CAPSULE (FP) PO PRN (05:42)
[2024-01-27] MEDS ORDERED: ALBUTEROL SO4 HFA INHALER IH PRN (05:49)
[2024-01-27] MEDS: DEXTROSE 5%-NORMAL SALINE 1,000 ML IV SCH (06:04)
[2024-01-27] MEDS: ACETAMINOPHEN 1000 MG/100 ML BAG IVPB SCH (08:33)
[2024-01-27] MEDS ORDERED: SENNOSIDES 8.6MG TABLET (FP) PO PRN (10:41)
[2024-01-27] MEDS ORDERED: METOPROLOL TARTRATE 25 MG TABLET (FP) ONE (11:08)
[2024-01-27] MEDS: METOPROLOL TARTRATE 25 MG TABLET (FP) PO SCH (11:15)
[2024-01-27] MEDS: MONTELUKAST NA 10 MG TABLET PO SCH (21:31)
[2024-01-28] MEDS: FAMOTIDINE 20 MG TABLET PO ONE (00:53)
[2024-01-28] MEDS ORDERED: ACETAMINOPHEN 325 MG TABLET (FP) PO PRN (07:40)
[2024-01-28 08:05] LABS: BASO % 0.4 % (0-2.0); EOS % 1.9 % (0-4.5); HEMATOCRIT 33.5 % (32.4-45.2); HEMOGLOBIN 11.5 GM/dL (10.7-15.3); LYMPH % 17.1 % (8-40); MCH 30.1 pg (25.7-33.7); MCHC 34.3 g/dl (32.0-36.0); MEAN CELL VOLUME 87.8 fl (80-96); MEAN PLT VOLUME 8.7 fl (7.5-11.1); MONO % 4.6 % (3.8-10.2); PLATELET COUNT 337 10^3/uL (134-434); RBC 3.81 M/mm3 (3.60-5.2); RDW 14.2 % (11.6-15.6); WHITE BLOOD COUNT 8.2 K/mm3 (4.0-10.0)
[2024-01-28 08:15] LABS: POTASSIUM 4.1 mmol/L (3.5-5.1)
[2024-01-28 08:17] LABS: ALBUMIN 3.3 g/dl (3.4-5.0); BLOOD UREA NITROGEN 5.8 mg/dL (7-18)
[2024-01-28 08:20] LABS: CREATININE 0.7 mg/dL (0.55-1.3)
[2024-01-28 08:22] LABS: BILIRUBIN,TOTAL 0.4 mg/dL (0.2-1); TOT PROT 7.3 g/dl (6.4-8.2)
[2024-01-28] MEDS ORDERED: ACETAMINOPHEN 1000 MG/100 ML BAG IVPB PRN (14:00)
[2024-01-28] MEDS: PANTOPRAZOLE 40 MG TABLET PO SCH (14:24)
[2024-01-28] MEDS ORDERED: ONDANSETRON 4 MG/2 ML VIAL IVPUSH PRN (17:53)
[2024-01-30 14:27] VITALS: BP 114/72; PULSE 75; RESP 20; TEMP 98.2
== END 2024-01-30 16:39 | disposition home or self-care (01) ==
LOC: JER 23:20 → JERBED 01-27 04:36 → J7W 01-27 12:21
PROVIDERS: ADMIT Internal Medicine; ATTEND Internal Medicine
PROC: 3E033NZ Introduction of Analgesics, Hypnotics, Sedatives into Peripheral Vein, Percutaneous Approach (ICD-10-PCS; principal; 2024-01-27)
PROC: 3E0337Z Introduction of Electrolytic and Water Balance Substance into Peripheral Vein, Percutaneous Approach (ICD-10-PCS; 2024-01-27)
DX: K59.00 Constipation, unspecified (principal); I47.10 Supraventricular tachycardia, unspecified; G89.18 Other acute postprocedural pain; I10 Essential (primary) hypertension; J45.909 Unspecified asthma, uncomplicated; R14.0 Abdominal distension (gaseous); Z90.49 Acquired absence of other specified parts of digestive tract; Z88.8 Allergy status to other drugs, medicaments and biological substances; Z91.011 Allergy to milk products; Z91.040 Latex allergy status
CPT/HCPCS: 36415; 74177-TC; 80048; 80053; 83605; 83735; 85025; 85610; 85730; 86850; 86900; 86901; 93005; 93010; 96374; 96375; 96376; 97116-GP; 97161-GP; 99285-25; G0378; J0131

== ENCOUNTER 2024-10-17 16:35 | Emergency (ER) | payer OTHER ==
[2024-10-17 16:49] VITALS: BP 149/76; PULSE 62; RESP 18; TEMP 98.7; BMI 35.9
[2024-10-17 18:10] LABS: BASO % 0.5 % (0-2.0); EOS % 1.8 % (0-4.5); HEMATOCRIT 36.9 % (32.4-45.2); LYMPH % 51.8 % (8-40); MCH 28.9 pg (25.7-33.7); MCHC 32.6 g/dl (32.0-36.0); MEAN CELL VOLUME 88.6 fl (80-96); MEAN PLT VOLUME 9.5 fl (7.5-11.1); MONO % 7.6 % (3.8-10.2); NEUT % 38.3 % (42.8-82.8); PLATELET COUNT 239 10^3/uL (134-434); RBC 4.16 M/mm3 (3.60-5.2); RDW 14.5 % (11.6-15.6); WHITE BLOOD COUNT 3.6 K/mm3 (4.0-10.0)
[2024-10-17 18:34] LABS: POTASSIUM 4.2 mmol/L (3.5-5.1)
[2024-10-17 18:37] LABS: ALBUMIN 3.7 g/dl (3.4-5.0); BLOOD UREA NITROGEN 16.9 mg/dL (7-18); MAGNESIUM 2.2 mg/dL (1.8-2.4)
[2024-10-17 18:42] LABS: BILIRUBIN,TOTAL 0.2 mg/dL (0.2-1); TOT PROT 7.7 g/dl (6.4-8.2)
[2024-10-17 19:31] LABS: HIV INTERPRETATION NEGATIVE (NEGATIVE)
== END 2024-10-17 18:50 | disposition home or self-care (01) ==
LOC: JER 16:35
DX: D72.819 Decreased white blood cell count, unspecified (principal); Z00.01 Encounter for general adult medical examination with abnormal findings
CPT/HCPCS: 36415; 80053; 83735; 85025; 86803; 87389; 99283-25

== ENCOUNTER 2025-04-19 06:07 | Day surgery (SDC) | payer OTHER ==
[2025-04-17 11:57] VITALS: BMI 38.0
[2025-04-19] MEDS ORDERED: ACETAMINOPHEN 500 MG TABLET (FP) PO PRN (08:40)
[2025-04-19] MEDS: BUPIVACAINE HCL/PF 0.5% (5MG/ML) 10 ML VIAL IJ ONE ×2 (12:27→12:36)
[2025-04-19] MEDS: IOHEXOL 180 MG/1 ML ML IJ ONE (12:36)
[2025-04-19 13:05] VITALS: TEMP 97.7
[2025-04-19 13:12] VITALS: BP 140/80; PULSE 60; RESP 18
== END 2025-04-19 14:05 | disposition home or self-care (01) ==
LOC: JASU-SURG 06:07
PROVIDERS: ATTEND Pain Medicine Pain Medicine
PROC: 3E0T33Z Introduction of Anti-inflammatory into Peripheral Nerves and Plexi, Percutaneous Approach (ICD-10-PCS; 2025-04-19)
PROC: 3E0T3BZ Introduction of Anesthetic Agent into Peripheral Nerves and Plexi, Percutaneous Approach (ICD-10-PCS; principal; 2025-04-19 12:45)
DX: M47.812 Spondylosis without myelopathy or radiculopathy, cervical region (principal)
CPT/HCPCS: 76000-TC-FY